=== PATIENT | male | born 1945 | race Caucasian/White ===

== ENCOUNTER 2016-08-07 17:09 | Emergency (ER) | payer MEDICARE, BC ==
--- NOTE | 2016-08-07 18:28 | EDM.PDOC ---
[id number] Complaint: illness Time Seen by Provider: 08/07/16 18:20 Source of Information: Reports: Patient History Limitations: Reports: No limitations - History of Present Illness INITIAL COMMENTS - FREE TEXT/NARRATIVE: 71-year-old male stumbled yesterday hitting the left side of his head, no loss of consciousness. Today he has had several episodes of vomiting and feels like he is walking unsteady. Has a slight upper abdominal discomfort. Patient has a history of alcoholism and his is concerned he may still be drinking. Location: Reports: head (Left worship area) Severity: mild Associated Symptoms: Reports: nausea/vomiting, weakness, other (Unsteady) - Related Data Allergies Allergy/AdvReac Type Severity Reaction Status Date / Time No Known Allergies Allergy Verified 08/07/16 17:33 Home Meds: Home Meds Donepezil HCl [Aricept] 50 mg PO BEDTIME 08/07/16 [History] Ibuprofen [Advil] 2 tab PO ASDIRECTED 08/07/16 [History] Past Medical History Musculoskeletal History: Reports: Fracture Psychiatric History: Reports: Anxiety - Infectious Disease History Infectious Disease History: Reports: Chicken pox, Measles, Mumps - Past Surgical History HEENT Surgical History: Reports: Tonsillectomy GI Surgical History: Reports: Appendectomy, Colonoscopy Social & Family History - Tobacco Use Smoking Status *Q: Current Every Day Smoker Years of Tobacco use: 45 Packs/Tins Daily: 0.7 - Caffeine Use Caffeine Use: Reports: Coffee, Tea - Recreational Drug Use Recreational Drug Use: No ED ROS GENERAL - Review of Systems Review Of Systems: See Below Constitutional: Denies: fever, chills, malaise HEENT: Denies: Ear pain, Vision change Respiratory: Denies: Shortness of Breath, Cough Cardiovascular: Denies: Chest pain GI/Abdominal: Reports: Abdominal pain, Vomiting : Reports: no symptoms Skin: Reports: no symptoms Neurological: Reports: Difficulty Walking (Feels off balance). Denies: Dizziness, Headache Psychiatric: Reports: No symptoms ED EXAM, GENERAL - Physical Exam Exam: See Below Exam Limited By: No limitations General Appearance: alert, no apparent distress Eye Exam: bilateral eye: EOMI Nose: normal inspection Head: other (No swelling, bruising, or evidence of trauma) Neck: normal inspection, non-tender Respiratory/Chest: no respiratory distress, lungs clear Cardiovascular: regular rate, rhythm GI/Abdominal: soft, tender (Slight discomfort to palpation in the left upper quadrant, no guarding or rebound) Extremities: normal inspection Neurological: alert, oriented, no motor/sensory deficits Psychiatric: normal affect, normal mood Skin Exam: Warm, Dry Course - Vital Signs Last Recorded V/S: Last Vital Signs Temp 95.9 F 08/07/16 17:36 Pulse 66 08/07/16 18:44 Resp 19 08/07/16 18:44 BP 192/164 H 08/07/16 18:44 Pulse Ox 98 08/07/16 18:44 - Orders/Labs/Meds Orders: Active Orders 24 hr Category Date Time Status Head wo Cont [CT] Stat Exams 08/07/16 18:24 Taken Labs: Laboratory Tests 08/07/16 08/07/16 08/07/16 Range/Units 18:44 18:44 18:44 WBC 9.9 (4.5-11.0) K/uL RBC 5.60 (4.30-5.90) M/uL Hgb 17.3 H (12.0-15.0) g/dL Hct 49.3 (40.0-54.0) % MCV 88 (80-98) fL MCH 31 (27-31) pg MCHC 35 (32-36) % Plt Count 249 (150-400) K/uL Neut % (Auto) 83 H (36-66) % Lymph % (Auto) 11 L (24-44) % [place] % (Auto) 6 (2-6) % Eos % (Auto) 0 L (2-4) % Baso % (Auto) 0 (0-1) % Sodium 139 L (140-148) mmol/L Potassium 4.5 (3.6-5.2) mmol/L Chloride 102 (100-108) mmol/L Carbon Dioxide 30 (21-32) mmol/L Anion Gap 11.5 (5.0-14.0) mmol/L BUN 14 (7-18) mg/dL Creatinine 0.9 (0.8-1.3) mg/dL Est Cr Clr Drug Dosing 67.09 mL/min Estimated GFR (MDRD) > 60 (>60) Glucose 123 H (74-106) mg/dL Calcium 9.5 (8.5-10.1) mg/dL Total Bilirubin 0.9 (0.2-1.0) mg/dL AST 18 (15-37) U/L ALT 19 (12-78) U/L Alkaline Phosphatase 117 H (46-116) U/L Total Protein 8.3 H (6.4-8.2) g/dL Albumin 4.4 (3.4-5.0) g/dL Globulin 3.9 H (2.3-3.5) g/dL Albumin/Globulin Ratio 1.1 L (1.2-2.2) Amylase 59 (25-115) U/L Lipase 365 (73-393) U/L Ethyl Alcohol < 3 mg/dL - Re-Assessments/Exams Free Text/Narrative Re-Assessment/Exam: 08/07/16 18:47 CBC, CMP, amylase and lipase were obtained and a head CT was ordered. 08/07/16 19:[address] was negative. Labs were all reassuring. Patient was reassured as well. He may have had a mild concussion causing him some unsteadiness but there is no acute findings. Departure - Departure Time of Disposition: 20:02 Disposition: Home, Self-Care 01 Condition: good Clinical Impression: Closed head injury with concussion Qualifiers: Encounter type: initial encounter Loss of consciousness presence/duration: without LOC Qualified Code(s): S06.0X0A - Concussion without loss of consciousness, initial encounter Instructions: Concussion, Adult, [id number] Referrals: Sebastián Kerr PA-C [Primary Care Provider] - Forms: ED Department Discharge Care Plan Goals: Continue your regular medications and increase activity as tolerated. Return anytime if worsening or concerns. - My Orders Last 24 Hours: My Active Orders 08/07/16 18:24 Head wo Cont [CT] Stat - Assessment/Plan Last 24 Hours: My Active Orders 08/07/16 18:24 Head wo Cont [CT] Stat
[2016-08-07 18:45] VITALS: BP 192/164
== END 2016-08-07 20:02 | disposition home or self-care (01) ==
LOC: JP.ED 17:09
DX: S06.0X0A Concussion without loss of consciousness, initial encounter (principal); F41.9 Anxiety disorder, unspecified; F17.210 Nicotine dependence, cigarettes, uncomplicated; Z98.890 Other specified postprocedural states; Z90.49 Acquired absence of other specified parts of digestive tract; W22.8XXA Striking against or struck by other objects, initial encounter
CPT/HCPCS: 36415; 70450; 80053; 82150; 83690; 85025; 99284; G0480; 99283